=== PATIENT | female | born 1990 | race Caucasian/White ===

== ENCOUNTER 2017-08-09 14:31 | Emergency (ER) | END 2017-08-09 18:16 | disposition home or self-care (01) ==

== ENCOUNTER 2018-07-16 01:31 | Emergency (ER) | payer MEDICAID, OTHER ==
[~2018-07-16] VITALS: Ht 162.6 cm; Wt 60.0 kg
[~2018-07-16 01:31] MED LIST: ACET500C5 PO; ONDA4TAB8 PO
[2018-07-16 01:33] VITALS: Ht 162.6 cm; Wt 60.0 kg
--- NOTE | 2018-07-16 03:33 | ERD ---
ER Documentation Chief Complaint Chief Complaint Pain with deep inspiration x 2 days HPI 28-year-old female with no past medical history presenting with complaints of left-sided chest pressure that she also feels in her back. She states her symptoms are worse with activity and deep inspiration. She feels short of breath. Her symptoms are constant but worse with exertion. She denies any associated diaphoresis, nausea, vomiting, focal weakness or numbness. 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 No cough or hemoptysis. No leg swelling. No history of blood clots but her mother has had several blood clots in the past. Patient is unsure of the reason why. No early cardiac disease in the family. No recent travel, prolonged immobilization, surgeries, or exogenous estrogen use. ROS All systems reviewed and are negative except as per history of present illness. Medications Home Meds Discontinued Scripts Ondansetron Hcl* (Zofran*) 4 Mg Tablet, 4 MG PO Q6H for NAUSEA AND/OR VOMITING, #30 TAB Prov:SURESH BOLAND PA-C 08/09/17 Acetaminophen* (Tylophen*) 500 Mg Capsule, 1 CAP PO Q6H PRN for PAIN AND OR ELEVATED TEMP, #30 CAP Prov:SURESH BOLAND PA-C 08/09/17 Allergies Allergies: Coded Allergies: cefaclor (Verified Allergy, Unknown, hives, 07/16/18) PMhx/Soc Medical and Surgical Hx: pt denies Medical Hx, pt denies Surgical Hx Hx Alcohol Use: No Hx Substance Use: No Hx Tobacco Use: No Smoking Status: Never smoker FmHx Mother has history of blood clots Family History: No diabetes, No coronary disease Physical Exam Vitals Vital Signs Date Temp Pulse Resp B/P (MAP) Pulse Ox O2 O2 Flow FiO2 Time Delivery Rate 07/16/18 98.6 77 12 107/72 100 Room Air 03:57 (84) 07/16/18 98.6 66 23 114/72 98 Room Air 03:14 (86) 07/16/18 98.6 85 16 120/64 97 Room Air 02:29 (82) 07/16/18 98.6 78 16 120/64 97 01:33 (82) Physical Exam Const: No acute distress, speaking in full sentences Head: Atraumatic Eyes: Normal Conjunctiva ENT: Normal External Ears, Nose and Mouth. Neck: Full range of motion. No meningismus. No JVD Resp: Clear to auscultation bilaterally. No wheezing, rales, or rhonchi Cardio: Regular rate and rhythm, no murmurs. 2+ distal pulses in all 4 extremities Abd: Soft, non tender, non distended. Normal bowel sounds Skin: No petechiae or rashes Back: No midline or flank tenderness Ext: No cyanosis, or edema. No calf tenderness. Neur: Awake and alert Psych: Normal Mood and Affect Result Diagram: 07/16/18 0244 07/16/18 0244 Results 24 hrs Laboratory Tests Test 07/16/18 02:44 07/16/18 02:45 07/16/18 02:47 White Blood Count 9.1 10^3/ul Red Blood Count 4.37 10^6/ul Hemoglobin 13.2 g/dl Hematocrit 39.6 % Mean Corpuscular Volume 90.6 fl Mean Corpuscular Hemoglobin 30.2 pg Mean Corpuscular 33.3 g/dl Hemoglobin Concent Red Cell Distribution Width 12.0 % Platelet Count 258 10^3/UL Mean Platelet Volume 10.1 fl Immature Granulocytes % 0.200 % Neutrophils % 44.0 % Lymphocytes % 43.3 % Monocytes % 8.7 % Eosinophils % 3.0 % Basophils % 0.8 % Nucleated Red Blood Cells % 0.0 /100WBC Immature Granulocytes # 0.020 10^3/ul Neutrophils # 4.0 10^3/ul Lymphocytes # 3.9 10^3/ul Monocytes # 0.8 10^3/ul Eosinophils # 0.3 10^3/ul Basophils # 0.1 10^3/ul Nucleated Red Blood Cells # 0.0 10^3/ul Prothrombin Time 12.5 Sec Prothrombin Time Ratio 1.0 INR International Normalized Ratio 0.92 Activated Partial Thromboplast 29.7 Sec Time D-Dimer 284.89 ng/ml D-Dimer Comment Sodium Level 139 mmol/L Potassium Level 3.8 mmol/L Chloride Level 102 mmol/L Carbon Dioxide Level 28 mmol/L Anion Gap 9 Blood Urea Nitrogen 25 mg/dl Creatinine 0.90 mg/dl Est Glomerular Filtrat Rate mL/min > 60 mL/min Glucose Level 89 mg/dl Calcium Level 9.4 mg/dl Troponin I < 0.012 ng/ml Bedside Urine pH (LAB) 6.0 Bedside Urine Protein (LAB) Negative Bedside Urine Glucose (UA) Negative Bedside Urine Ketones (LAB) Negative Bedside Urine Blood Negative Bedside Urine Nitrite (LAB) Negative Bedside Urine Leukocyte Esterase Negative (L POC Beta HCG, Qualitative NEGATIVE Procedures/MDM EMERGENT LABS AND DIAGNOSTIC STUDIES: Lab Results above were reviewed and interpreted by me And show no significant abnormalities 12-lead EKG was interpreted by Laura Morales MD: Normal Sinus Rhythm with sinus arrhythmia at 81 bpm Rightward axis Normal intervals No acute ST or T wave changes suggestive of acute ischemia or STEMI. Radiology Results as interpreted by Radiology below were reviewed by Indu Morales MD: Chest x-ray shows no acute abnormalities Initial Nursing notes reviewed. Previous Medical Records requested via the Electronic Health Record. EMERGENCY DEPARTMENT COURSE / MEDICAL DECISION MAKING: Patient is presenting with pleuritic chest pain and shortness of breath. Vitals were normal without tachycardia or hypoxia. Per well's criteria, patient is low risk for PE. Given her family history of blood clots in her mother, d-dimer was ordered as patient symptoms are concerning for possible PE. Given her low risk, I did not think CTA chest was necessary as the initial test. D-dimer was negative, making my post-test probability of PE very low. I have a low suspicion for acute coronary syndrome or aortic dissection. Chest x-ray does not show any evidence of infiltrate, pneumomediastinum, or pneumothorax. Low suspicion for pericarditis or myocarditis. The cause of the patient's chest pain is unclear at this time but likely not life-threatening or serious. I discussed all of her results with her and the differential diagnoses. Follow-up with her PCP was recommended within the next 1-2 days. Return precautions were discussed. Departure Diagnosis: Primary Impression: Shortness of breath Additional Impression: Chest pain Chest pain type: chest pain on breathing Qualified Codes: R07.1 - Chest pain on breathing Condition: Stable EKAJ SZYMANSKI MD Jul 16, 2018 03:33
[2018-07-16 03:57] VITALS: BP 107/72; PULSE 77; RESP 12
== END 2018-07-16 03:58 | disposition home or self-care (01) ==
LOC: E/R 01:31
DX: R06.02 Shortness of breath (principal)
CPT/HCPCS: 36415; 71045; 80048; 81003; 81025; 84484; 85025; 85378; 85610; 85730; 93005